=== PATIENT | female | born 1950 | race Caucasian/White ===

== ENCOUNTER 2017-12-28 09:53 | Emergency (ER) | payer MEDICARE, OTHER ==
[~2017-12-28] VITALS: Ht 160 cm; Wt 49.9 kg
[2017-12-28 10:02] VITALS: BP 157/89
== END 2017-12-28 11:36 | disposition home or self-care (01) ==
LOC: ER 09:54
DX: S50.01XA Contusion of right elbow, initial encounter (principal); Z85.3 Personal history of malignant neoplasm of breast; Z90.11 Acquired absence of right breast and nipple; W22.8XXA Striking against or struck by other objects, initial encounter; Y93.89 Activity, other specified; Y92.89 Other specified places as the place of occurrence of the external cause; Y99.8 Other external cause status
CPT/HCPCS: 99282; A4606; Z7610

== ENCOUNTER 2018-08-23 12:35 | Emergency (ER) | payer MEDICARE, OTHER ==
[~2018-08-23] VITALS: Ht 160 cm; Wt 61.7 kg
--- NOTE | 2018-08-23 12:40 | NUR ---
patient arrived at unit ambulatory. a&o x 3, no acute distress. with c/o left ankle/foot pain, patient reported she had a glf on 08/21/18.
[2018-08-23] MEDS ORDERED: ACETAMINOPHEN ES 500 MG TABLET PO ONE (13:00)
[2018-08-23] MEDS ORDERED: ACETAMINOPHEN ES 500 MG TABLET ONE (13:34)
--- NOTE | 2018-08-23 13:49 | NUR ---
RADIOLOGY AT [facility]
--- NOTE | 2018-08-23 15:21 | NUR ---
Patient discharged to home in stable condition. Written and verbal after care instructions given. Patient verbalizes understanding of instruction. Written prescription provided to patient
[2018-08-23 15:27] VITALS: BP 120/85
== END 2018-08-23 15:27 | disposition home or self-care (01) ==
LOC: ER 12:36
DX: S90.02XA Contusion of left ankle, initial encounter (principal); F10.10 Alcohol abuse, uncomplicated; Y90.9 Presence of alcohol in blood, level not specified; Z85.3 Personal history of malignant neoplasm of breast; Z90.11 Acquired absence of right breast and nipple; W18.09XA Striking against other object with subsequent fall, initial encounter; Y93.89 Activity, other specified; Y92.89 Other specified places as the place of occurrence of the external cause; Y99.8 Other external cause status
CPT/HCPCS: 73590-TC; 73610-TC; 73630-TC

== ENCOUNTER 2022-07-05 09:30 | Emergency (ER) | payer MEDICARE ==
[~2022-07-05] VITALS: Ht 157.5 cm; Wt 62.1 kg
--- NOTE | 2022-07-05 09:30 | NUR ---
BIBS FOR PSYCH EVALUATION. A/O X 3, SITTER AT BEDSIDE
[2022-07-05] MEDS ORDERED: ACETAMINOPHEN ES 500 MG TABLET PO ONE (10:00)
[2022-07-05 10:06] LABS: BASOPHILS % (AUTO) 0.6 % (0.0-2.0); EOSINOPHILS % (AUTO) 0.5 % (0.0-6.0); HEMATOCRIT 43 % (33-45); LYMPHOCYTES # (AUTO) 1.1 K/uL (0.8-4.8); LYMPHOCYTES % (AUTO) 15.1 % (20.0-44.0); MEAN CORPUSCULAR HGB CONC 33 g/dl (31.0-36.0); MEAN CORPUSCULAR VOLUME 93 fL (82-100); MONOCYTES # (AUTO) 0.4 K/uL (0.1-1.30); NEUTROPHILS # (AUTO) 5.9 K/uL (1.8-8.9); NEUTROPHILS % (AUTO) 78.8 % (43.0-81.0); PLATELET COUNT (AUTO) 287 K/uL (150-450); RED BLOOD CELL COUNT(AUTO) 4.66 MIL/uL (4.0-5.2); WHITE BLOOD COUNT (AUTO) 7.4 K/uL (4.3-11.0)
[2022-07-05 10:07] LABS: BILIRUBIN,URINE NEGATIVE (NEGATIVE); COLOR,URINE YELLOW (YELLOW); LEUKOCYTE ESTERASE ,URINE NEGATIVE (NEGATIVE); NITRITE, URINE NEGATIVE (NEGATIVE); PH,URINE 5.5 (5.0-8.0); PROTEIN,URINE NEGATIVE (NEGATIVE); UGLUCOSE NEGATIVE (NEGATIVE); UROBILINOGEN,URINE 0.2 EU/dL (0.2)
[2022-07-05 10:14] LABS: CALCIUM, SERUM 9.2 mg/dL (8.5-10.1); CARBON DIOXIDE 28 mmol/L (21-32); CHLORIDE 103 mmol/L (98-107); CREATININE 0.7 mg/dL (0.6-1.3); GLUCOSE 117 mg/dL (74-106); POTASSIUM 3.8 mmol/L (3.5-5.1); SODIUM SERUM 138 mmol/L (136-145); UREA NITROGEN, BLOOD 12 mg/dL (7-18)
[2022-07-05 10:20] LABS: ALANINE AMINOTRANSFERASE 30 U/L (12-78); ALBUMIN 4.1 g/dL (3.4-5.0); ALKALINE PHOSPHATASE 85 U/L (46-116); ASPARTATE AMINOTRANSFERASE 19 U/L (15-37); BILIRUBIN,DIRECT 0.2 mg/dL (0.0-0.2); BILIRUBIN,TOTAL 0.5 mg/dL (0.2-1.0); TOTAL PROTEIN, SERUM 6.6 g/dL (6.4-8.2)
[2022-07-05 10:23] LABS: ALCOHOL, BLOOD < 3 mg/dL (0-0)
--- NOTE | 2022-07-05 12:58 | NUR ---
NORMA LOMAX AT BEDSIDE FOR CRISIS EVAL.
--- NOTE | 2022-07-05 13:19 | NUR ---
MEDICALLY CLEARED, SEEN BY REPORTING ANALYST. D/C HOME IN STABLE CONDITION.
[2022-07-05 13:21] VITALS: BP 142/85
== END 2022-07-05 13:22 | disposition home or self-care (01) ==
LOC: ER 09:42
DX: F23 Brief psychotic disorder (principal); G44.009 Cluster headache syndrome, unspecified, not intractable; Z85.3 Personal history of malignant neoplasm of breast
CPT/HCPCS: 36415; 70450-TC; 80048-TC; 80076-TC; 85025-TC; G0480

== ENCOUNTER 2022-09-27 10:51 | Emergency (ER) | payer MEDICARE ==
[~2022-09-27] VITALS: Ht 157.5 cm; Wt 57.6 kg
--- NOTE | 2022-09-27 11:00 | NUR ---
PEDRO FROM HOME FOR HEADACHE, BODYPAIN, CONGESTION, AND DIARRHEA. OT STATES "IT'S BEEN GOING ON FOR SEVERAL HOURS". PLACED IN BED, AAOX4, BREATHING EVEN AND UNLABORED SATURATING AT 97%RA. AT BEDSIDE FOR EVAL.
--- NOTE | 2022-09-27 11:13 | NUR ---
BLOOD SPECIMEN COLLECTED AND SENT TO LAB
--- NOTE | 2022-09-27 11:23 | NUR ---
IV R HAND 20G
--- NOTE | 2022-09-27 11:32 | NUR ---
PATIENT TAKEN TO CT VIA GON[facility]
[2022-09-27 11:52] LABS: BASOPHILS # (AUTO) 0.1 K/uL (0.0-0.2); BASOPHILS % (AUTO) 0.5 % (0.0-2.0); EOSINOPHILS % (AUTO) 0.4 % (0.0-6.0); HEMATOCRIT 46 % (33-45); HEMOGLOBIN 15.1 g/dL (11.5-14.8); LYMPHOCYTES # (AUTO) 0.9 K/uL (0.8-4.8); LYMPHOCYTES % (AUTO) 8.9 % (20.0-44.0); MEAN CORPUSCULAR HGB CONC 33 g/dl (31.0-36.0); MEAN CORPUSCULAR VOLUME 93 fL (82-100); MONOCYTES # (AUTO) 0.3 K/uL (0.1-1.30); MONOCYTES % (AUTO) 2.9 % (2.0-12.0); NEUTROPHILS # (AUTO) 8.7 K/uL (1.8-8.9); NEUTROPHILS % (AUTO) 87.3 % (43.0-81.0); PLATELET COUNT (AUTO) 344 K/uL (150-450); RED BLOOD CELL COUNT(AUTO) 4.91 MIL/uL (4.0-5.2)
--- NOTE | 2022-09-27 11:52 | NUR ---
URINE SAMPLE SENT TO LAB
[2022-09-27 12:01] LABS: CALCIUM, SERUM 9.5 mg/dL (8.5-10.1); CARBON DIOXIDE 22 mmol/L (21-32); CHLORIDE 104 mmol/L (98-107); CREATININE 0.7 mg/dL (0.6-1.3); GLUCOSE 121 mg/dL (74-106); POTASSIUM 3.5 mmol/L (3.5-5.1); SODIUM SERUM 138 mmol/L (136-145); UREA NITROGEN, BLOOD 7 mg/dL (7-18)
[2022-09-27 12:03] LABS: ALANINE AMINOTRANSFERASE 31 U/L (12-78); ALBUMIN 4.1 g/dL (3.4-5.0); ALKALINE PHOSPHATASE 86 U/L (46-116); ASPARTATE AMINOTRANSFERASE 20 U/L (15-37); BILIRUBIN,DIRECT 0.1 mg/dL (0.0-0.2); BILIRUBIN,TOTAL 0.5 mg/dL (0.2-1.0); TOTAL PROTEIN, SERUM 7.4 g/dL (6.4-8.2)
[2022-09-27 12:05] LABS: BILIRUBIN,URINE 1+ (NEGATIVE); COLOR,URINE YELLOW (YELLOW); LEUKOCYTE ESTERASE ,URINE NEGATIVE (NEGATIVE); NITRITE, URINE NEGATIVE (NEGATIVE); PROTEIN,URINE TRACE mg/dl (NEGATIVE); UGLUCOSE NEGATIVE (NEGATIVE); UROBILINOGEN,URINE 0.2 EU/dL (0.2)
[2022-09-27] MEDS ORDERED: ACETAMINOPHEN ES 500 MG TABLET ONE (12:11)
[2022-09-27] MEDS ORDERED: IBUP-1957 PO (12:13)
[2022-09-27] MEDS ORDERED: ACETAMINOPHEN ES 500 MG TABLET PO ONE (12:30)
[2022-09-27 12:31] LABS: BACTERIA,URINE Rare /HPF (None Seen); SQUAMOUS EPITHELIAL CELL,UR Few /HPF (None Seen); WBC,URINE 0-2 /HPF (0-3)
--- NOTE | 2022-09-27 12:34 | NUR ---
IV removed. Catheter intact and site benign. Pressure and 4x4 applied to site. No bleeding noted.Patient discharged to home in stable condition. Written and verbal after care instructions given. Patient verbalizes understanding of instruction.
[2022-09-27 12:37] VITALS: BP 145/75
== END 2022-09-27 12:34 | disposition home or self-care (01) ==
LOC: ER 10:53
DX: M79.10 Myalgia, unspecified site (principal); R51.9 Headache, unspecified
CPT/HCPCS: 36415; 70450-TC; 71045-TC; 80048-TC; 80076-TC; 81001; 83605-TC; 84484-TC; 85025-TC; 85730-TC; 87040-TC; 87086-TC